=== PATIENT | male | born 1990 | race Two or more races ===

== ENCOUNTER 2018-05-04 23:41 | Emergency (ER) | payer OTHER ==
[~2018-05-04] VITALS: Ht 175.3 cm; Wt 56.7 kg
== END 2018-05-05 08:37 | disposition home or self-care (01) ==
LOC: ER 23:41
DX: S92.122A Displaced fracture of body of left talus, initial encounter for closed fracture (principal); S92.121A Displaced fracture of body of right talus, initial encounter for closed fracture; W18.39XA Other fall on same level, initial encounter; Y93.89 Activity, other specified; Y92.098 Other place in other non-institutional residence as the place of occurrence of the external cause; Y99.8 Other external cause status